=== PATIENT | female | born 1995 ===

== ENCOUNTER 2017-06-21 16:17 | Emergency (ER) | payer BC ==
[2017-06-21 16:47] VITALS: TEMP 99.5
[2017-06-21 16:48] VITALS: BMI 27.4
--- NOTE | 2017-06-21 16:54 | ED PDOC ---
Arrival/HPI - General Time Seen by Provider: 06/21/17 16:36 Historian: Patient - History of Present Illness Narrative History of Present Illness (Text): 06/21/17 16:51 22yo female with no PMhx who present with complaint of left pelvic pain x 2months. 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 she denies nausea, vomiting, diarrhea, constipation, fever, chills, urianry frequency, dysuria, fever, back pain. She notes that she is sexually active. Denies vaginal discharge. Past Medical History - Provider Review Nursing Documentation Reviewed: Yes - Infectious Disease Hx of Infectious Diseases: None - Reproductive Menopause: No - Psychiatric Hx Substance Use: No - Anesthesia Hx Anesthesia: No Family/Social History - Physician Review Nursing Documentation Reviewed: Yes Family/Social History: Unknown Family HX Smoking Status: Unknown If Ever Smoked Hx Alcohol Use: Yes Frequency of alcohol use: Socially Hx Substance Use: No Allergies/Home Meds Allergies/Adverse Reactions: Allergies No Known Allergies Allergy (Verified 06/21/17 16:47) Review of Systems - Physician Review All systems were reviewed & negative as marked: Yes - Review of Systems Constitutional: Normal Eyes: Normal ENT: Normal Respiratory: Normal Cardiovascular: Normal Gastrointestinal: Abdominal Pain (Left pelvic pain). absent: Constipation, Diarrhea, Nausea, Vomiting, Hematochezia, Hematemesis Genitourinary Female: absent: Dysuria, Frequency, Hematuria Musculoskeletal: Normal Skin: Normal Neurological: Normal Endocrine: Normal Hemo/Lymphatic: Normal Psychiatric: Normal Physical Exam Vital Signs Reviewed: Yes Vital Signs Temp Pulse Resp BP Pulse Ox 06/21/17 19:00 81 17 115/72 100 06/21/17 18:35 82 18 112/70 99 06/21/17 16:44 99.5 F 88 16 110/67 99 Temperature: Afebrile Blood Pressure: Normal Pulse: Regular Respiratory Rate: Normal Appearance: Positive for: Well-Appearing, Non-Toxic, Comfortable Pain Distress: None Mental Status: Positive for: Alert and Oriented X 3 - Systems Exam Head: Present: Atraumatic, Normocephalic Pupils: Present: PERRL Extroacular Muscles: Present: EOMI Conjunctiva: Present: Normal Mouth: Present: Moist Mucous Membranes Neck: Present: Normal Range of Motion Respiratory/Chest: Present: Clear to Auscultation, Good Air Exchange. No: Respiratory Distress, Accessory Muscle Use Cardiovascular: Present: Regular Rate and Rhythm, Normal S1, S2. No: Murmurs Abdomen: Present: Tenderness (Left pelvic tenderness), Normal Bowel Sounds, Other (Soft). No: Distention, Peritoneal Signs, Rebound, Guarding, McBurney's Point Tender, Rovsing's Sign Present Back: Present: Normal Inspection. No: CVA Tenderness Upper Extremity: Present: Normal Inspection. No: Cyanosis, Edema Lower Extremity: Present: Normal Inspection. No: Edema Neurological: Present: GCS=15, CN II-XII Intact, Speech Normal Skin: Present: Warm, Dry, Normal Color. No: Rashes Psychiatric: Present: Alert, Oriented x 3, Normal Insight, Normal Concentration Medical Decision Making ED Course and Treatment: 06/21/17 20:01 PT in ED for left pelvic pain. Denies NVDC, vaginal discharge. She had UTI Transvaginal US IMPRESSION: Complex cyst less than 2 cm right adnexa. Low volume fluid in the cul-de-sac and adjacent to the right adnexa. Result was DW the pt. Her pain was controlled in ED with medication. 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 - Lab Interpretations Lab Results: Lab Results 06/21/17 17:52: Urine Color Light yellow, Urine Appearance Sl cloudy, Urine pH 6.0, Ur Specific Fleming 1.025, Urine Protein Negative, Urine Glucose (UA) Negative, Urine Ketones Negative, Urine Blood Negative, Urine Nitrate Negative, Urine Bilirubin Negative, Urine Urobilinogen 0.2, Ur Leukocyte Esterase Small H , Urine RBC 10 - 15, Urine WBC 2 - 5, Ur Epithelial Cells Many, Amorphous Sediment Moderate, Urine Bacteria Mod, Urine Other Mucus - RAD Interpretation Radiology Orders: 06/21/17 16:48 TRANSVAGINAL [US] Stat - Medication Orders Current Medication Orders: Discontinued Medications Cephalexin Monohydrate (Keflex) 500 mg PO STAT STA PRN Reason: Protocol Stop: 06/21/17 18:39 Last Admin: 06/21/17 19:28 Dose: 500 mg Ketorolac Tromethamine (Toradol) 60 mg IM STAT STA Stop: 06/21/17 17:07 Last Admin: 06/21/17 17:15 Dose: MAR Pain Assessment Document 06/21/17 17:15 SF (Rec: 06/21/17 18:36 SF [id number]) Pain Reassessment Is this a pain reassessment? Yes Sleep Is patient sleeping during reassessment? No Presence of Pain Presence of Pain Yes Disposition/Present on Arrival - Present on Arrival Any Indicators Present on Arrival: No History of DVT/PE: No History of Uncontrolled Diabetes: No Urinary Catheter: No History of Decub. Ulcer: No History Surgical Site Infection Following: None - Disposition Have Diagnosis and Disposition been Completed?: Yes Diagnosis: UTI (urinary tract infection), Ovarian cyst, complex Disposition: HOME/ ROUTINE Disposition Time: 18:40 Patient Plan: Discharge Condition: STABLE Discharge Instructions (ExitCare): Urinary Tract Infections in Adults, Ovarian Cysts Additional Instructions: Follow up with a SPORTING [employer] SALES ASSOCIATE Return to ED for any new or worsening symptoms Prescriptions: Cephalexin [Keflex] 500 mg PO TID #21 capsule Ibuprofen [Motrin Tab] 600 mg PO Q6 #20 tab Referrals: Rosa Kennedy MD [Primary Care Provider] - Follow up with primary Hodan Melara MD [Staff Provider] - Follow up with primary
[2017-06-21 17:59] LABS: URINE BILIRUBIN NEGATIVE (NEGATIVE); URINE BLOOD NEGATIVE (NEGATIVE); URINE GLUCOSE (UA) NEGATIVE (NEGATIVE); URINE LEUKOCYTE ESTERASE SMALL Leu/uL (NEGATIVE); URINE PROTEIN NEGATIVE mg/dL (<30 mg/dL); URINE UROBILINOGEN 0.2 E.U./dL (<1 E.U./dL)
[2017-06-21 18:16] LABS: URINE APPEARANCE SL CLOUDY (CLEAR); URINE COLOR LIGHT YELLOW (YELLOW)
[2017-06-21 18:23] LABS: URINE AMORPHOUS SEDIMENT MODERATE; URINE BACTERIA MOD (NEG); URINE EPITHELIAL CELLS MANY /hpf (0-5)
--- NOTE | 2017-06-21 18:36 | US ---
HISTORY: Left-sided pelvic pain. LMP 05/31/2017. COMPARISON: None available. TECHNIQUE: Transvaginal only. Real -time technique with 2D, duplex and color Doppler FINDINGS: UTERUS: Measures 3.2 x 7.5 cm. Normal in size and appearance. No fibroid or other mass lesion seen. ENDOMETRIUM: Measures 7.9 mm in diameter. No ultrasound findings to suggest gestational sac, fluid, debris, mass or polyp or other pathologic process within the endometrium. CERVIX: No cervical abnormality identified. RIGHT OVARY: Measures 1.7 x 2.8 x 4 cm. No solid mass. Normal flow. Multiple subcentimeter follicles. Complex cyst perhaps containing debris/ hemorrhage 1.6 x 2 x 1.5 cm LEFT OVARY: Measures 1.5 x 1.6 x 3.3 cm. No solid mass. Normal flow. FREE FLUID: Trace free fluid identified in the pelvis/cul de sac. OTHER FINDINGS: None. IMPRESSION: Complex cyst less than 2 cm right adnexa. Low volume fluid in the cul-de-sac and adjacent to the right adnexa.
[2017-06-21 19:01] VITALS: BP 115/72; PULSE 81; RESP 17; O2SAT 100
== END 2017-06-21 19:30 | disposition home or self-care (01) ==
LOC: ED 16:17
DX: N39.0 Urinary tract infection, site not specified (principal); N83.201 Unspecified ovarian cyst, right side